=== PATIENT | male | born 1975 | race Caucasian/White ===

== ENCOUNTER 2022-07-20 12:02 | Emergency (ER) | payer MEDICAID ==
[~2022-07-20] VITALS: Ht 157.5 cm; Wt 65.8 kg
--- NOTE | 2022-07-20 12:08 | NUR ---
Patient [id number] able to express his concerns, patient with no signs of distress, able to provide health history.
[2022-07-20 12:09] VITALS: BP 150/94
--- NOTE | 2022-07-20 12:09 | NUR ---
Discussed plan of care with patient, verbalized agreement.
--- NOTE | 2022-07-20 14:24 | NUR ---
Patient discharged to home in stable condition. Written and verbal after care instructions given. Patient verbalizes understanding of instruction.
== END 2022-07-20 14:24 | disposition home or self-care (01) ==
LOC: ER 12:04
DX: Z71.1 Person with feared health complaint in whom no diagnosis is made (principal); I10 Essential (primary) hypertension; E11.9 Type 2 diabetes mellitus without complications